=== PATIENT | male | born 1965 | race African-American/Black ===

== ENCOUNTER → 2017-01-24 | Outpatient (RCR) | payer BC ==
[~2017-01-24] VITALS: Ht 190.5 cm; Wt 208.7 kg
[~2017-01-24] MED LIST: ALBUTEROL SULF8.5 GM INH; BUPROPION XL300 MG PO; DIOVAN160 MG ORAL; FUROSEMIDE20 M1 ORAL; GLIPIZIDE5 G1 MC; GUAIFENESIN-CO118 M1 ORAL; IBUPROFEN600 MG ORAL; LEVAQUIN750 MG ORAL; LEXAPRO20 MG ORAL; Lidocaine HCl 2% Jelly 5ml Tube TOPIC ONE; METOPROLOL SUC200 MG ORAL; TRAZODONE HCL150 MG ORAL; VICTOZA 2-0.6 MG/0.1 SUBQ; XARELTO20 MG ORAL
== END | disposition home or self-care (01) ==
LOC: WCC 09:46
DX: L97.812 Non-pressure chronic ulcer of other part of right lower leg with fat layer exposed (principal); L97.822 Non-pressure chronic ulcer of other part of left lower leg with fat layer exposed; L97.522 Non-pressure chronic ulcer of other part of left foot with fat layer exposed; I87.2 Venous insufficiency (chronic) (peripheral); R60.0 Localized edema; E11.9 Type 2 diabetes mellitus without complications; I51.9 Heart disease, unspecified; Z90.49 Acquired absence of other specified parts of digestive tract; Z88.0 Allergy status to penicillin
CPT/HCPCS: 11043; 29580; G0463; 99204